=== PATIENT | female | born 1970 | race African-American/Black ===

== ENCOUNTER 2022-01-08 15:14 | Emergency (ER) | payer OTHER ==
[~2022-01-08] VITALS: Ht 177.8 cm; Wt 145.1 kg
[2022-01-08] MEDS ORDERED: AMLODIPINE BESY10 MG PO (17:10)
[2022-01-08] MEDS ORDERED: METOPROLOL TART50 MG PO (17:10)
== END 2022-01-08 18:13 | disposition home or self-care (01) ==
LOC: ER 15:36
DX: I10 Essential (primary) hypertension (principal); F20.9 Schizophrenia, unspecified; F31.9 Bipolar disorder, unspecified
CPT/HCPCS: 99282

== ENCOUNTER 2022-04-28 11:10 | Emergency (ER) | payer OTHER ==
[~2022-04-28] VITALS: Ht 177.8 cm; Wt 145.1 kg
[~2022-04-28 11:10] MED LIST: AMLODIPINE BESY10 MG PO; METOPROLOL TART50 MG PO
[2022-04-28] MEDS ORDERED: ASPIRIN 81 MG CHEW TAB PO ONE (11:30)
[2022-04-28 11:47] LABS: BASOPHILS # (AUTO) 0.1 (0.0-0.1); BASOPHILS % 0.8 % (0.0-1.0); EOSINOPHILS # (AUTO) 0.2 (0.0-0.4); EOSINOPHILS % 2.2 % (0.0-6.0); HEMATOCRIT 34.4 % (34.2-44.1); HEMOGLOBIN 11.5 g/dL (12.0-16.0); LYMPHOCYTES # (AUTO) 3.3 (1.0-3.2); LYMPHOCYTES % 37.1 % (18.0-39.1); MEAN CORPUSCULAR HEMOGLOBIN 24.9 pg (28-32); MEAN CORPUSCULAR HGB CONC 33.4 g/dL (31-35); MEAN CORPUSCULAR VOLUME 74.5 fL (81-99); MONOCYTES # (AUTO) 0.8 (0.2-0.8); MONOCYTES % 8.9 % (4.4-11.3); NEUTROPHILS # (AUTO) 4.5 (2.1-6.9); NEUTROPHILS % 50.9 % (38.7-80.0); PLATELET COUNT 196 x10e3/uL (140-360); RED BLOOD COUNT 4.62 x10e6/uL (3.6-5.1); RED CELL DISTRIBUTION WIDTH 15.1 % (11.7-14.4)
[2022-04-28 12:11] LABS: ALBUMIN 2.7 g/dL (3.5-5.0); ALBUMIN/GLOBULIN RATIO 0.8 (0.8-2.0); ANION GAP 14.2 mmol/L (8-16); CALCIUM 8.8 mg/dL (8.4-10.2); CREATININE, SERUM 0.74 mg/dL (0.57-1.11); POTASSIUM 4.2 mmol/L (3.5-5.1)
[2022-04-28 12:17] LABS: CREATINE KINASE MB 1.1 ng/mL (0-5.0)
== END 2022-04-28 13:31 | disposition home or self-care (01) ==
LOC: ER 11:14
DX: R07.9 Chest pain, unspecified (principal); I10 Essential (primary) hypertension; I25.10 Atherosclerotic heart disease of native coronary artery without angina pectoris; F20.9 Schizophrenia, unspecified
CPT/HCPCS: 36415; 71045; 80053; 82550; 82553; 84484; 85025; 93005; 99284

== ENCOUNTER → 2022-05-20 | Emergency (ER) | payer OTHER | END | disposition left against medical advice (07) | LOC: ER 14:02 | DX: R10.9 Unspecified abdominal pain (principal) ==